=== PATIENT | female | born 1945 | race Caucasian/White ===

== ENCOUNTER 2021-01-14 13:00 | Day surgery (SDCO) | payer MEDICARE, OTHER ==
[~2021-01-14] VITALS: Ht 162.6 cm; Wt 74.8 kg
[2021-01-14 13:14] LABS: BASOPHIL 1.1 % (0-2); EOSINOPHIL 5.8 % (0-7); HCT 37.3 % (37.0-47.0); HGB 12.4 g/dl (12.5-16.0); LYMPHOCYTE 33.5 % (15-48); MCH 31.9 pg (25.0-31.0); MCHC 33.2 g/dL (32.0-36.0); MCV 95.9 fL (78.0-100.0); MONOCYTE 7.6 % (0-12); MPV 9.5 fL (6.0-9.5); NEUTROPHIL 51.8 % (41-80); NRBC 0; PLT 184 K/uL (150-400); RBC 3.89 M/uL (4.20-5.40); RDW 13.6 % (11.5-14.0); WBC 5.6 K/uL (4.0-10.5)
[2021-01-14 13:36] LABS: ALBUMIN 3.4 g/dL (3.4-5.0); BILIRUBIN - TOTAL 0.5 mg/dL (0.2-1.0); GLOBULIN (CALCULATION) 4.2 g/dL; POTASSIUM 3.7 mmol/L (3.5-5.1); TOTAL PROTEIN 7.6 g/dL (6.4-8.2)
[2021-01-14 13:38] LABS: PROTHROMBIN TIME 12.6 SECONDS (11.8-13.4); PTT 30.6 SECONDS (24.4-34.7)
[2021-01-14 17:01] LABS: PRO-BNP 824 pg/mL (<125)
[2021-01-14] MEDS ORDERED: COREG 6.25MG6.25 MG PO (19:22)
[2021-01-14] MEDS ORDERED: COZAAR50 MG PO (19:23)
[2021-01-14] MEDS ORDERED: CRESTOR20 MG PO (19:23)
[2021-01-14] MEDS ORDERED: POTASSIUM CHLO10 MEQ PO (19:24)
[2021-01-14] MEDS ORDERED: LASIX40 MG PO (19:24)
[2021-01-14] MEDS ORDERED: RANEXA500 MG PO (19:25)
[2021-01-14] MEDS ORDERED: HYDROXYCHLOROQ200 MG PO (19:25)
[2021-01-14] MEDS ORDERED: NITROSTAT0.6 MG SL (19:26)
[2021-01-14] MEDS ORDERED: ASPIRIN EC81 MG PO (19:27)
[2021-01-14] MEDS ORDERED: AMBIEN10 MG PO (19:27)
[2021-01-15 06:50] LABS: BUN/CREAT RATIO (CALC) 17.9 RATIO; CREATININE 1.06 mg/dL (0.51-0.95); POTASSIUM 3.4 mmol/L (3.5-5.1)
== END 2021-01-15 16:35 | disposition other institution (70) ==
LOC: FER 13:00 → FMS 15:49 → FER 16:08 → FMS 01-15 16:35
PROVIDERS: Emergency Medicine; ADMIT Allergy & Immunology Allergy
DX: R07.89 Other chest pain (principal); I25.10 Atherosclerotic heart disease of native coronary artery without angina pectoris; I25.2 Old myocardial infarction; I11.0 Hypertensive heart disease with heart failure; I50.9 Heart failure, unspecified; Z95.5 Presence of coronary angioplasty implant and graft; Z88.0 Allergy status to penicillin; Z88.1 Allergy status to other antibiotic agents; I65.29 Occlusion and stenosis of unspecified carotid artery; E78.5 Hyperlipidemia, unspecified; K21.9 Gastro-esophageal reflux disease without esophagitis; M19.90 Unspecified osteoarthritis, unspecified site; Z79.82 Long term (current) use of aspirin; R55 Syncope and collapse; Z20.822 Contact with and (suspected) exposure to COVID-19
CPT/HCPCS: 36415; 71045; 71275; 80048; 80053; 80061; 83036; 83880; 84484; 85025; 85610; 85730; 93005; G0378; J2270; J7040; U0002